=== PATIENT | male | born 1940 | race Two or more races ===

== ENCOUNTER 2016-08-10 16:22 | Observation (INO) | payer MEDICARE ==
[~2016-08-10] VITALS: Ht 170.2 cm; Wt 85.0 kg
[2016-08-10 16:24] VITALS: BP 137/78; PULSE 84; RESP 20; TEMP 97.5; O2SAT 93
--- NOTE | 2016-08-10 17:08 | PD ---
Physical Exam Time Seen by Provider: 17:06 Narrative 76yo with episode of CP, SOB, dizziness, vomiting, diaphoresis, paleness that lasted 30 minutes while at [employer]. C/o BEE now. No chest pain or SOB now. No hx OH, Stroke. Hx HTN. VSS. Patient seen in triage. Awaiting bed placement. Data Data Last Documented VS Vital Signs Date Time Temp Pulse Resp B/P Pulse Ox O2 Delivery O2 Flow Rate FiO2 08/10/16 16:24 97.5 84 20 137/78 93 Room Air MDM Supervised Visit with JUDIT: Blanca Lopez Aug 10, 2016 17:08
[2016-08-10 17:44] LABS: AUTOMATED NEUTROPHIL # 11.6 TH/MM3 (1.8-7.7); BASOPHIL # 0.1 TH/MM3 (0-0.2); BASOPHIL % 0.6 % (0.0-2.0); EOSINOPHIL # 0.1 TH/MM3 (0-0.4); EOSINOPHIL % 0.7 % (0.0-4.0); HEMATOCRIT 46.4 % (39.0-51.0); HEMO FLAGS AUTO DIFF; LYMPH % 6.8 % (9.0-44.0); LYMPHOCYTE # 0.9 TH/MM3 (1.0-4.8); MEAN CELL VOLUME 85.5 FL (80.0-100.0); MEAN CORPUSCULAR HEMOGLOBIN 28.5 PG (27.0-34.0); MEAN CORPUSCULAR HGB CONC 33.3 % (32.0-36.0); MONO % 7.7 % (0.0-8.0); NEUT % 84.2 % (16.0-70.0); PLATELET COUNT 208 TH/MM3 (150-450); RED BLOOD COUNT 5.42 MIL/MM3 (4.50-5.90); RED CELL DISTRIBUTION WIDTH 14.6 % (11.6-17.2); WHITE BLOOD COUNT 13.7 TH/MM3 (4.0-11.0)
[2016-08-10 17:58] LABS: BICARBONATE 29.8 MEQ/L (21.0-32.0); POTASSIUM 4.7 MEQ/L (3.5-5.1)
[2016-08-10 18:24] LABS: PLATELET ESTIMATE SMEAR NORMAL (NORMAL); PLATELET MORPHOLOGY NORMAL (NORMAL); SCAN/DIFF AUTO DIFF CONFIRMED
[2016-08-10] MEDS ORDERED: LEVO.125 PO (18:47)
[2016-08-10] MEDS ORDERED: PROT40TA PO (18:47)
[2016-08-10] MEDS ORDERED: METO50TA PO (18:47)
[2016-08-10] MEDS ORDERED: LISI10TA3 PO (18:47)
[2016-08-10] MEDS ORDERED: METF500T PO (18:47)
[2016-08-10] MEDS ORDERED: LOVA20TA PO (18:57)
[2016-08-10] MEDS ORDERED: ASPIRIN 81 MG CHEW TAB PO ONE (20:00)
[2016-08-10] MEDS ORDERED: SODIUM CHLOR 0.45% 1000 ML INJ 1,000 ML IV SCH (20:03)
[2016-08-10] MEDS ORDERED: ONDANSETRON HCL 4 MG/2 ML VIAL IVP PRN (20:15)
[2016-08-10] MEDS ORDERED: SODIUM CHLORIDE 0.9% FLUSH 10 ML FLUSH IV FLUSH PRN (20:15)
[2016-08-10] MEDS ORDERED: NALOXONE HCL 0.4 MG/ML AMP IV PRN (20:15)
[2016-08-10] MEDS ORDERED: TEMAZEPAM 15 MG CAP PO PRN (20:15)
[2016-08-10 20:36] VITALS: BP 105/62; PULSE 79; RESP 16; O2SAT 94
[2016-08-10] MEDS: SODIUM CHLORIDE 0.9% FLUSH 10 ML FLUSH IV FLUSH SCH (20:38)
--- NOTE | 2016-08-10 20:47 | PD ---
HPI Chief Complaint: Chest Pain Time Seen by Provider: 19:07 Travel History International Travel<30 days: No Contact w/Intl Traveler<30days: No Traveled to known affect area: No History of Present Illness HPI Patient is a 76-year-old male with history of hypertension, hyperlipidemia, diabetes, since the emergency room for evaluation of chest pain. Patient reports that he was at work today, walking around and greeting people when all of a sudden he felt sick. Patient reports that he felt lightheaded and dizzy, reports that he began to have pressure to his substernal, reports that he felt diaphoretic and shortness of breath and nauseous, reports that he felt like he was going to have a syncopal episode. Patient reports that this episode lasted for about hour and resolved while at rest. Patient reports that he has never had history of chest pain or these symptoms in the past. Patient reports no chest pain at this time. Patient does follow with Dr. Littlejohn with [facility] [place]. Denies history of cardiac catheter in the past, denies history of SC. PFSH Past Medical History Arthritis: Yes Cardiovascular Problems: Yes (htn) Diabetes: Yes Patient Takes Glucophage: Yes Gout: Yes Past Surgical History Cholecystectomy: Yes Other Surgery: Yes (thyroidectomy) Social History Alcohol Use: No Tobacco Use: No Substance Use: No Allergies-Medications (Allergen,Severity, Reaction): Coded Allergies: No Known Allergies (Verified , 08/10/16) Reported Meds & Prescriptions Reported Meds & Active Scripts Active Reported Lovastatin 20 Mg Tab 20 Mg PO DAILY Metoprolol Tartrate 50 Mg Tab 50 Mg PO DAILY Metformin (Metformin HCl) 500 Mg Tab 500 Mg PO DAILY With a meal Lisinopril 10 Mg Tab 10 Mg PO DAILY Protonix (Pantoprazole Sodium) 40 Mg Tab 40 Mg PO DAILY Synthroid (Levothyroxine Sodium) 125 Mcg Tab 125 Mcg PO DAILY Review of Systems General / Constitutional: No: Fever Eyes: No: Visual changes HENT: No: Headaches Cardiovascular: Positive: Chest Pain or Discomfort, Diaphoresis Respiratory: Positive: Shortness of Breath Gastrointestinal: No: Abdominal Pain Genitourinary: No: Dysuria Musculoskeletal: No: Pain Skin: No Rash Neurologic: Positive: Weakness, Syncope Psychiatric: No: Depression Endocrine: No: Polydipsia Hematologic/Lymphatic: No: Easy Bruising Physical Exam Narrative GENERAL: NAD, Nontoxic SKIN: Focused skin assessment warm/dry. HEAD: Atraumatic. Normocephalic. EYES: Pupils equal and round. No injection or drainage. ENT: No nasal bleeding or discharge. Mucous membranes pink and moist. NECK: Trachea midline. No JVD. CARDIOVASCULAR: Regular rate and rhythm. No murmur appreciated. RESPIRATORY: No accessory muscle use. Clear to auscultation. Breath sounds equal bilaterally. GASTROINTESTINAL: Abdomen soft, non-tender, nondistended. Hepatic and splenic margins not palpable. MUSCULOSKELETAL: No obvious deformities. No clubbing. No cyanosis. No edema. NEUROLOGICAL: Awake and alert. No obvious cranial nerve deficits. Motor grossly within normal limits. Normal speech. PSYCHIATRIC: Appropriate mood and affect; insight and judgment normal. Data Data Last Documented VS Vital Signs Date Time Temp Pulse Resp B/P Pulse Ox O2 Delivery O2 Flow Rate FiO2 08/10/16 20:36 79 16 105/62 94 08/10/16 16:24 97.5 Room Air Orders Electrocardiogram (08/10/16 17:09) Complete Blood Count With Diff (08/10/16 17:09) Basic Metabolic Panel (Bmp) (08/10/16 17:09) Ckmb (Isoenzyme) Profile (08/10/16 17:09) Troponin I (08/10/16 17:09) Aspirin Chew (Aspirin Chew) (08/10/16 20:00) Place In Observation (08/10/16 ) Vital Signs (Adult) Q4H (08/10/16 20:03) Activity Oob With Assistance (08/10/16 20:03) Electrician Deck / Telemetry .CONTINUOUS (08/10/16 20:03) Diet 1800 Ada Cons Carb (08/11/16 Breakfast) Sodium Chlor 0.45% 1000 Ml Inj (1/2 Ns 1 (08/10/16 20:03) Sodium Chloride 0.9% Flush (Ns Flush) (08/10/16 20:15) Sodium Chloride 0.9% Flush (Ns Flush) (08/10/16 21:00) Ondansetron Inj (Zofran Inj) (08/10/16 20:15) Temazepam (Restoril) (08/10/16 20:15) Basic Metabolic Panel (Bmp) (08/11/16 06:00) Complete Blood Count With Diff (08/11/16 06:00) Creatine Kinase (Cpk) (08/10/16 20:03) Creatine Kinase (Cpk) (08/11/16 02:03) Troponin I (08/10/16 20:03) Troponin I (08/11/16 02:03) Enoxaparin Inj (Lovenox Inj) (08/10/16 21:00) Naloxone Inj (Narcan Inj) (08/10/16 20:15) Consult Cardiology (08/10/16 ) Admit Order (Ed Use Only) (08/10/16 20:38) Chest, Single Ap (08/10/16 ) Labs Laboratory Tests Test 08/10/16 17:20 White Blood Count 13.7 TH/MM3 Red Blood Count 5.42 MIL/MM3 Hemoglobin 15.5 GM/DL Hematocrit 46.4 % Mean Corpuscular Volume 85.5 FL Mean Corpuscular Hemoglobin 28.5 PG Mean Corpuscular Hemoglobin 33.3 % Concent Red Cell Distribution Width 14.6 % Platelet Count 208 TH/MM3 Mean Platelet Volume 7.9 FL Neutrophils (%) (Auto) 84.2 % Lymphocytes (%) (Auto) 6.8 % Monocytes (%) (Auto) 7.7 % Eosinophils (%) (Auto) 0.7 % Basophils (%) (Auto) 0.6 % Neutrophils # (Auto) 11.6 TH/MM3 Lymphocytes # (Auto) 0.9 TH/MM3 Monocytes # (Auto) 1.1 TH/MM3 Eosinophils # (Auto) 0.1 TH/MM3 Basophils # (Auto) 0.1 TH/MM3 CBC Comment AUTO DIFF Differential Comment AUTO DIFF CONFIRMED Platelet Estimate NORMAL Platelet Morphology Comment NORMAL Red Cell Morphology Comment NORMAL Sodium Level 139 MEQ/L Potassium Level 4.7 MEQ/L Chloride Level 101 MEQ/L Carbon Dioxide Level 29.8 MEQ/L Anion Gap 8 MEQ/L Blood Urea Nitrogen 28 MG/DL Creatinine 1.48 MG/DL Estimat Glomerular Filtration 46 ML/MIN Rate Random Glucose 125 MG/DL Calcium Level 9.3 MG/DL Total Creatine Kinase 67 U/L Troponin I 0.05 NG/ML [facility] Medical Decision Making Medical Screen Exam Complete: Yes Emergency Medical Condition: Yes Interpretation(s) EKG at 1716: Normal sinus rhythm at 75 bpm, QT/QTc 417/446, no acute ST or T- wave changes Vital Signs Date Time Temp Pulse Resp B/P Pulse Ox O2 Delivery O2 Flow Rate FiO2 08/10/16 20:36 79 16 105/62 94 08/10/16 16:24 97.5 84 20 137/78 93 Room Air Laboratory Tests Test 08/10/16 17:20 White Blood Count 13.7 TH/MM3 (4.0-11.0) Red Blood Count 5.42 MIL/MM3 (4.50-5.90) Hemoglobin 15.5 GM/DL (13.0-17.0) Hematocrit 46.4 % (39.0-51.0) Mean Corpuscular Volume 85.5 FL (80.0-100.0) Mean Corpuscular Hemoglobin 28.5 PG (27.0-34.0) Mean Corpuscular Hemoglobin 33.3 % Concent (32.0-36.0) Red Cell Distribution Width 14.6 % (11.6-17.2) Platelet Count 208 TH/MM3 (150-450) Mean Platelet Volume 7.9 FL (7.0-11.0) Neutrophils (%) (Auto) 84.2 % (16.0-70.0) Lymphocytes (%) (Auto) 6.8 % (9.0-44.0) Monocytes (%) (Auto) 7.7 % (0.0-8.0) Eosinophils (%) (Auto) 0.7 % (0.0-4.0) Basophils (%) (Auto) 0.6 % (0.0-2.0) Neutrophils # (Auto) 11.6 TH/MM3 (1.8-7.7) Lymphocytes # (Auto) 0.9 TH/MM3 (1.0-4.8) Monocytes # (Auto) 1.1 TH/MM3 (0-0.9) Eosinophils # (Auto) 0.1 TH/MM3 (0-0.4) Basophils # (Auto) 0.1 TH/MM3 (0-0.2) CBC Comment AUTO DIFF Differential Comment AUTO DIFF CONFIRMED Platelet Estimate NORMAL (NORMAL) Platelet Morphology Comment NORMAL (NORMAL) Red Cell Morphology Comment NORMAL (NORMAL) Sodium Level 139 MEQ/L (136-145) Potassium Level 4.7 MEQ/L (3.5-5.1) Chloride Level 101 MEQ/L (98-107) Carbon Dioxide Level 29.8 MEQ/L (21.0-32.0) Anion Gap 8 MEQ/L (5-15) Blood Urea Nitrogen 28 MG/DL (7-18) Creatinine 1.48 MG/DL (0.60-1.30) Estimat Glomerular Filtration 46 ML/MIN (>89) Rate Random Glucose 125 MG/DL (74-106) Calcium Level 9.3 MG/DL (8.5-10.1) Total Creatine Kinase 67 U/L (39-308) Troponin I 0.05 NG/ML (0.02-0.05) Differential Diagnosis ACS, arrhythmia, dehydration, electrolyte abnormality Narrative Course Patient is a 76 old male who presents to emergency room with complaints of chest pain today while at work. Patient reports that around 3 PM today, he felt sick, reports that he felt lightheaded, dizzy, he then began to have pressure to his chest with associated nausea, diaphoresis. Reports that he felt near-syncope during this episode. Patient reports that the symptoms lasted for about an hour and resolved on its own. Patient currently chest pain- free at this time. Patient was placed on a quality assurance monitor chassis upon arrival to the emergency room, labs as well as EKG ordered. Patient with troponin 0.05 which is top normal, will observe patient to Med/ Surg floor for cardiac workup. BUN/Cr 28/1.48- patient reports "i dont drink alot of fluids because I dont want to pee when i'm at work" - elevated cr most likely from dehydration, will give IVF Case reviewed with Dr. Anderson who accepts pt to service. Diagnosis Primary Impression: Chest pain Additional Impressions: Near syncope Renal insufficiency Paradise Archibald DO Aug 10, 2016 20:47
[2016-08-10] MEDS ORDERED: SODIUM CHLOR 0.9% 1000 ML INJ 1,000 ML IV ONE (21:00)
[2016-08-10] MEDS ORDERED: ENOXAPARIN SODIUM 40 MG/0.4 ML SYRINGE SQ SCH (21:00)
--- NOTE | 2016-08-10 21:12 | RADRPT ---
EXAM DATE/TIME: 08/10/2016 20:40 [place] COMPARISON: No previous studies available for comparison. INDICATIONS : Chest pain MEDICAL HISTORY : None. SURGICAL HISTORY : None. ENCOUNTER: Initial ACUITY: 1 day PAIN SCORE: 3/10 LOCATION: Bilateral chest FINDINGS: A single view of the chest demonstrates the lungs to be symmetrically aerated without evidence of mas s, infiltrate or effusion. The cardiomediastinal contours are unremarkable. Osseous structures are intact. CONCLUSION: No acute disease. Jass Rutledge MD on August 10, 2016 at 21:10 Board Certified Radiologist. This report was verified electronically.
[2016-08-10 22:37] VITALS: BP 133/66; PULSE 74; RESP 20; TEMP 98.3; O2SAT 96
--- NOTE | 2016-08-10 22:37 | HHI.HP ---
[facility] Service [facility] Primary Care Physician Dallas Cruz M.D. Admission Diagnosis chest pain Diagnoses: Travel History International Travel<30 Days: No Contact w/Intl Traveler <30 Da: No Traveled to Known Affected Are: No Past Family Social History Allergies: Coded Allergies: No Known Allergies (Verified , 08/10/16) Physical Exam Vital Signs Vital Signs Date Time Temp Pulse Resp B/P Pulse Ox O2 Delivery O2 Flow Rate FiO2 08/10/16 20:36 79 16 105/62 94 08/10/16 16:24 97.5 84 20 137/78 93 Room Air Physical Exam GENERAL: This is a well-nourished, well-developed patient, in no apparent distress. SKIN: No rashes, ecchymoses or lesions. Cool and dry. HEAD: Atraumatic. Normocephalic. No temporal or scalp tenderness. EYES: Pupils equal round and reactive. Extraocular motions intact. No scleral icterus. No injection or drainage. ENT: Nose without bleeding, purulent drainage or septal hematoma. Throat without erythema, tonsillar hypertrophy or exudate. Uvula midline. Airway patent. NECK: Trachea midline. No JVD or lymphadenopathy. Supple, nontender, no meningeal signs. CARDIOVASCULAR: Regular rate and rhythm without murmurs, gallops, or rubs. RESPIRATORY: Clear to auscultation. Breath sounds equal bilaterally. No wheezes , rales, or rhonchi. GASTROINTESTINAL: Abdomen soft, non-tender, nondistended. No hepato-splenomegaly , or palpable masses. No guarding. MUSCULOSKELETAL: Extremities without clubbing, cyanosis, or edema. No joint tenderness, effusion, or edema noted. No calf tenderness. Negative Homans sign bilaterally. NEUROLOGICAL: Awake and alert. Cranial nerves II through XII intact. Motor and sensory grossly within normal limits. Five out of 5 muscle strength in all muscle groups. Normal speech. Laboratory Laboratory Tests Test 08/10/16 08/10/16 17:20 21:24 White Blood Count 13.7 Red Blood Count 5.42 Hemoglobin 15.5 Hematocrit 46.4 Mean Corpuscular Volume 85.5 Mean Corpuscular Hemoglobin 28.5 Mean Corpuscular Hemoglobin 33.3 Concent Red Cell Distribution Width 14.6 Platelet Count 208 Mean Platelet Volume 7.9 Neutrophils (%) (Auto) 84.2 Lymphocytes (%) (Auto) 6.8 Monocytes (%) (Auto) 7.7 Eosinophils (%) (Auto) 0.7 Basophils (%) (Auto) 0.6 Neutrophils # (Auto) 11.6 Lymphocytes # (Auto) 0.9 Monocytes # (Auto) 1.1 Eosinophils # (Auto) 0.1 Basophils # (Auto) 0.1 CBC Comment AUTO DIFF Differential Comment AUTO DIFF CONFIRMED Platelet Estimate NORMAL Platelet Morphology Comment NORMAL Red Cell Morphology Comment NORMAL Sodium Level 139 Potassium Level 4.7 Chloride Level 101 Carbon Dioxide Level 29.8 Anion Gap 8 Blood Urea Nitrogen 28 Creatinine 1.48 Estimat Glomerular Filtration 46 Rate Random Glucose 125 Calcium Level 9.3 Total Creatine Kinase 67 84 Troponin I 0.05 0.04 Result Diagram: 08/10/16 1720 08/10/16 1720 Nieves Culver MD Aug 10, 2016 22:37
[2016-08-10] MEDS ORDERED: DEXTROSE 50% IN WATER 50 ML VIAL(D50) IV PUSH PRN (22:45)
[2016-08-10] MEDS ORDERED: GLUCAGON 1 MG/ML VIAL OTHER PRN (22:45)
--- NOTE | 2016-08-10 22:58 | EKG ---
Date Performed: 08/10/2016 Time Performed: 17:16:17 PTAGE: 76 years EKG: Sinus rhythm NONSPECIFIC INTRAVENTRICULAR CONDUCTION DELAY BORDERLINE ECG PREVIOUS TRACING : 07/17/2003 06.34 No significant change from previous tracing noted. DOCTOR: Dale Littlejohn Interpretating Date/Time 08/10/2016 22:56:54
[2016-08-11 03:18] LABS: BASOPHIL % 0.7 % (0.0-2.0); EOSINOPHIL # 0.2 TH/MM3 (0-0.4); EOSINOPHIL % 2.7 % (0.0-4.0); HEMATOCRIT 40.5 % (39.0-51.0); HEMO FLAGS DIFF FINAL; LYMPH % 20.4 % (9.0-44.0); LYMPHOCYTE # 1.5 TH/MM3 (1.0-4.8); MEAN CELL VOLUME 85.9 FL (80.0-100.0); MEAN CORPUSCULAR HEMOGLOBIN 28.7 PG (27.0-34.0); MEAN CORPUSCULAR HGB CONC 33.5 % (32.0-36.0); MONO % 10.5 % (0.0-8.0); NEUT % 65.7 % (16.0-70.0); PLATELET COUNT 164 TH/MM3 (150-450); RED BLOOD COUNT 4.72 MIL/MM3 (4.50-5.90); RED CELL DISTRIBUTION WIDTH 14.5 % (11.6-17.2); WHITE BLOOD COUNT 7.6 TH/MM3 (4.0-11.0)
[2016-08-11 03:34] LABS: BICARBONATE 29.1 MEQ/L (21.0-32.0); POTASSIUM 3.8 MEQ/L (3.5-5.1)
[2016-08-11 04:10] VITALS: BP 112/60; PULSE 74; RESP 20; TEMP 98; O2SAT 95
[2016-08-11] MEDS ORDERED: LEVOTHYROXINE SODIUM 125 MCG TAB PO SCH (06:00)
[2016-08-11] MEDS ORDERED: INSULIN ASPART SUPPLEMENTAL SCALE SQ SCH (07:00)
[2016-08-11 07:28] VITALS: BP 111/71; PULSE 76; RESP 16; TEMP 97.8; O2SAT 97
[2016-08-11] MEDS: SODIUM CHLORIDE 0.9% FLUSH 10 ML FLUSH IV FLUSH SCH (07:53)
[2016-08-11] MEDS ORDERED: METOPROLOL TARTRATE 50 MG TAB PO SCH (09:00)
[2016-08-11] MEDS ORDERED: PANTOPRAZOLE SOD 40 MG DELAYED RELEASE TAB PO SCH (09:00)
[2016-08-11] MEDS ORDERED: PRAVASTATIN SOD 20 MG TAB PO SCH (09:00)
[2016-08-11] MEDS ORDERED: LISINOPRIL 10 MG TAB PO SCH (09:00)
--- NOTE | 2016-08-11 09:59 | HHI.PR ---
Subjective Subjective Remarks no cp no sob feels better anxious to go home no acute changes overnight no dizziness Review of Systems Constitutional Constitutional Remarks 12 point ROS completed, neg. except as noted above Vitals/Results Vital Signs Vital Signs Date Time Temp Pulse Resp B/P Pulse Ox O2 Delivery O2 Flow Rate FiO2 08/11/16 07:28 97.8 76 16 111/71 97 08/11/16 04:10 98.0 74 20 112/60 95 08/10/16 22:37 98.3 74 20 133/66 96 08/10/16 20:36 79 16 105/62 94 08/10/16 16:24 97.5 84 20 137/78 93 Room Air CBC/BMP: 08/11/16 0240 08/11/16 0240 Lab Results Laboratory Tests Test 08/10/16 08/10/16 08/11/16 17:20 21:24 02:40 White Blood Count 13.7 TH/MM3 7.6 TH/MM3 Red Blood Count 5.42 MIL/MM3 4.72 MIL/MM3 Hemoglobin 15.5 GM/DL 13.6 GM/DL Hematocrit 46.4 % 40.5 % Mean Corpuscular Volume 85.5 FL 85.9 FL Mean Corpuscular Hemoglobin 28.5 PG 28.7 PG Mean Corpuscular Hemoglobin 33.3 % 33.5 % Concent Red Cell Distribution Width 14.6 % 14.5 % Platelet Count 208 TH/MM3 164 TH/MM3 Mean Platelet Volume 7.9 FL 7.6 FL Neutrophils (%) (Auto) 84.2 % 65.7 % Lymphocytes (%) (Auto) 6.8 % 20.4 % Monocytes (%) (Auto) 7.7 % 10.5 % Eosinophils (%) (Auto) 0.7 % 2.7 % Basophils (%) (Auto) 0.6 % 0.7 % Neutrophils # (Auto) 11.6 TH/MM3 5.0 TH/MM3 Lymphocytes # (Auto) 0.9 TH/MM3 1.5 TH/MM3 Monocytes # (Auto) 1.1 TH/MM3 0.8 TH/MM3 Eosinophils # (Auto) 0.1 TH/MM3 0.2 TH/MM3 Basophils # (Auto) 0.1 TH/MM3 0.0 TH/MM3 CBC Comment AUTO DIFF DIFF FINAL Differential Comment AUTO DIFF CONFIRMED Platelet Estimate NORMAL Platelet Morphology Comment NORMAL Red Cell Morphology Comment NORMAL Sodium Level 139 MEQ/L 141 MEQ/L Potassium Level 4.7 MEQ/L 3.8 MEQ/L Chloride Level 101 MEQ/L 105 MEQ/L Carbon Dioxide Level 29.8 MEQ/L 29.1 MEQ/L Anion Gap 8 MEQ/L 7 MEQ/L Blood Urea Nitrogen 28 MG/DL 25 MG/DL Creatinine 1.48 MG/DL 1.06 MG/DL Estimat Glomerular Filtration 46 ML/MIN 68 ML/MIN Rate Random Glucose 125 MG/DL 98 MG/DL Calcium Level 9.3 MG/DL 8.0 MG/DL Total Creatine Kinase 67 U/L 84 U/L 93 U/L Troponin I 0.05 NG/ML 0.04 NG/ML 0.05 NG/ML Physical Exam General General Appearance: Well Developed, Well Nourished, No Acute Distress, Comfortable Eyes Eye Exam: Pupils Equal, Pupils Reactive Ears & Nose Ears & Nose Exam: Nasal Mucosa [place] Throat Throat Exam: Oral Mucosa [place] & Moist Neck Neck Exam: Neck Supple, Trachea Midline Pulmonary Resp Exam: Clear Bilaterally Cardiology CV Exam: Regular, Good Perfusion Gastrointestinal/Abdomen GI Exam: Soft, Non-Tender, Bowel Sounds Present, Non-Distended Musculoskeletal MS Exam: Joints Intact Integumentary Skin Exam: Warm, Dry Extremeties Extremities Exam: No Edema, Pedal Pulses Palpable Neurologic Neuro Exam: Alert, Awake, Oriented, Speech Clear, Moving All Extremities, No Focal Deficits Psychiatric Psych Exam: Appropriate Responses VTE Prophylaxis VTE Prophylaxis Device: SCDs VTE Prophylaxis Meds: Lovenox Assessment/Plan Problem List: (1) Renal insufficiency (2) Chest pain (3) Near syncope (4) HTN (hypertension) (5) Elevated troponin (6) hx cardiac AVM Assessment/Plan chest pain free trop x 3 sets indef. cardiology consult pending continue ASA, BB< statins renal insuf./dehydration, poor liquid intake creat better tolerating po well continue home meds lovenox for DVT prophylaxis will have RN walk around unit poss. home today after cardiology evaluates instructed to drink fluids, avoids them at work because of urinary frequently f/u PCP diet-heart healthy activity - as lety D/W RN D/W Dr. Culver D/W pt. This pt. was seen by myself and Dr. Culver, this note is written on his behalf. Problem Qualifiers (1) Chest pain: (2) HTN (hypertension): Qualified Code: I10 - Essential hypertension Brandie Welch [facility] Aug 11, 2016 09:59
--- NOTE | 2016-08-11 11:26 | MB ---
cc: OLVINRICKIE DATE OF CONSULTATION 08/11/2016 REASON FOR CONSULTATION Chest pain HISTORY OF PRESENT ILLNESS The patient is a 76-year-old [place] male with a history of hypertension, borderline diabetes, hyperlipidemia, coronary cameral fistula who was in his usual state of health up until the day of admission when he began to experience nausea, vomiting at work. About 10 minutes later, he developed a substernal chest pressure associated with diaphoresis. The episode lasted less than 10 minutes. He cannot recall any other episodes of chest discomfort in the last couple years. Recently, the patient had been treated with gout medications and he thinks some of these symptoms he developed, including the nausea, vomiting, diarrhea were from the gout therapy. He denies pleurisy, dizziness, syncope, near-syncope, palpitations, pedal edema, paroxysmal nocturnal dyspnea. Since coming into hospital, he has had no further chest discomfort. PAST MEDICAL HISTORY 1. Hypertension 2. Borderline diabetes 3. Hyperlipidemia 4. 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 At that time, there was no significant oxygen shunting demonstrated. There was also mild pulmonary hypertension and a normal pulmonary angiogram. MEDICATIONS His cardiac medications at home are: 1. Lovastatin 20 mg daily. 2. Metoprolol tartrate 50 mg daily. 3. Lisinopril 10 mg daily. ALLERGIES NO KNOWN DRUG ALLERGIES. PAST SURGICAL HISTORY Thyroidectomy and cholecystectomy. SOCIAL HISTORY The patient is a former smoker. There is no history of alcohol abuse. REVIEW OF SYSTEMS As in the history of present illness, otherwise negative or noncontributory. He also denies headache, visual changes, melena, dyspepsia, bright red blood per rectum, fevers. PHYSICAL EXAM On physical examination, his blood pressure 110/70 with a pulse of 76, respirations 16. GENERAL: He is a well-developed, well-nourished [place] male in no acute distress. HEENT: On examination, jugular venous pressure is normal. Carotid pulses are 2+ bilaterally and without bruits. CHEST: Examination of the chest reveals clear lung boliv[place]. CARDIAC: On cardiac examination, he has a regular rhythm and rate without S3-S4 or murmur. ABDOMEN: On abdominal examination, he has a soft, nontender abdomen. Bowel sounds are present. There is no definite hepatosplenomegaly. EXTREMITIES: Examination of the extremities reveals no clubbing, cyanosis or edema. LABORATORY DATA Includes WBC 7.6, hemoglobin 13.6, platelets 164, potassium 3.8, BUN 25, creatinine 1.06, negative CK levels. EKG shows sinus rhythm, nonspecific intraventricular conduction delay. Chest x-ray shows no acute disease. IMPRESSION Atypical symptoms for myocardial ischemia in this 76-year-old [place] male with a history of hypertension, diabetes, hyperlipidemia, coronary cameral fistula (right coronary to right ventricle). CK levels are negative for myocardial infarction. EKG shows no acute ST-segment or T-wave changes. Troponin levels are very minimally elevated, although in this setting of renal insufficiency on admission, (creatinine 1.48). Clinical suspicion for pulmonary embolism is low. RECOMMENDATIONS He can be discharged home today from a cardiac standpoint; will set the patient up for an outpatient nuclear stress test this week. MD EMI Jackson/SOPHIA /9:56 AM /11:04 AM MTDGerardo
== END 2016-08-11 11:58 | disposition home or self-care (01) ==
LOC: NEPC 16:22 → NEDA 20:40 → NEPHCDU 22:33
PROVIDERS: ADMIT Specialist; ATTEND Specialist
DX: R07.9 Chest pain, unspecified (principal); E86.0 Dehydration; D72.829 Elevated white blood cell count, unspecified; N17.9 Acute kidney failure, unspecified; E03.9 Hypothyroidism, unspecified; I10 Essential (primary) hypertension; R79.89 Other specified abnormal findings of blood chemistry; E78.5 Hyperlipidemia, unspecified; J44.9 Chronic obstructive pulmonary disease, unspecified; M19.90 Unspecified osteoarthritis, unspecified site; M10.9 Gout, unspecified; E11.9 Type 2 diabetes mellitus without complications; Z79.84 Long term (current) use of oral hypoglycemic drugs; Z87.891 Personal history of nicotine dependence; Z87.74 Personal history of (corrected) congenital malformations of heart and circulatory system
CPT/HCPCS: 71010; 80048; 82550; 82948; 84484; 85025; 93005; 99285; G0378; J1650; J7030